=== PATIENT | female | born 1970 | race Caucasian/White ===

== ENCOUNTER 2024-10-15 18:23 | Observation (INO) | payer BC, SELFPAY ==
[2024-10-15 12:25] VITALS: BP 101/68
[2024-10-15 12:49] LABS: Hematocrit 37.1 % (37.0-47.0); Hemoglobin 12.5 g/dL (12.0-16.0); Mean Corp Hgb Conc. 33.7 g/dL (33.0-37.0); Mean Corpuscular Volume 94.6 fL (81.0-99.0); Nucleated Red Blood Cells % 0 %; Platelet Count 334 10^3/uL (130-400); Red Cell Dist. Width 13.8 % (11.5-14.5)
[2024-10-15 13:07] LABS: ALT (SGPT) 14 U/L (0-35); AST (SGOT) 24 U/L (14-36); Albumin 4.3 g/dl (3.5-5.0); Alkaline Phosphatase 54 U/L (38-126); Blood Urea Nitrogen 19 mg/dl (7-17); Calcium 9.7 mg/dl (8.4-10.2); Carbon Dioxide 30 mmol/L (22-30); Chloride 103 mmol/L (98-107); Glucose 85 mg/dl (70-99); Potassium 4.1 mmol/L (3.5-5.1); Sodium 138 mmol/L (135-145); Total Protein 6.7 g/dl (6.3-8.2); eGFR 58.97
[2024-10-15 13:45] VITALS: BP 98/61
--- NOTE | 2024-10-15 15:08 | ED.GENMED ---
History of Present Illness
General
Chief Complaint: Change in Mental Status
Source: patient and family
Time Seen by Provider: 10/15/24 13:30
History of Present Illness
History of Present Illness:
54-year-old female presents for evaluation of confusion, word finding abnormalities. Patient has been experiencing the symptoms for the past few days. Symptoms seem to correlate with the onset of fentanyl patch though dose was reduced from 25-12.5
and remains the same. She does take gabapentin for at night as well. She takes Dilaudid orally for breakthrough pain. Fentanyl patch was started to help control the patient's pain on her more constant basis that she was using oral Dilaudid
frequently. Pain is related to bony mets. Patient is not receiving any IV chemotherapy but is taking hormonal blockers
Phy Exam
Physical Exam
Physical Exam:
General: Awake, Alert, Oriented X3. No acute distress. Appears mildly confused and has some difficulty with word finding during the conversation
Vitals: unremarkable
Head: Atraumatic
Eyes: Pupils equal, EOMI
Throat: Airway intact, no exudates
Neck: Trachea midline
Lungs: Clear and equal b/l
Heart: Regular rate, no murmurs
Abd: Soft, Nontender, No pulsatile mass
Neuro: Cranial nerves intact, muscle strength equal bilaterally, cerebellar exam normal
Skin: Warm, dry, no rash
Extremities: pulses equal b/l, no edema
Course
Orders/Labs/Results
Orders:
Orders
10/15/24 12:42
Complete Blood Count/With Diff Urgent
Comprehensive Metabolic Panel Urgent
10/15/24 12:44
CT Cervical Spine W/o Iv Contr Urgent
Comment: increase confusion and balance issues x 2 week
Reason For Exam: fall, + head strike
CT Head W/o Iv Contrast Urgent
Comment: increase confusion and balance issues x 2 week
Reason For Exam: fall x 1 week ago + head strike
10/15/24 15:07
HYDROmorphone [Dilaudid] 2 mg PO NOW STA
Ketorolac [Toradol] 15 mg IV NOW STA
10/15/24 15:27
Ondansetron Injectable [Zofran] 4 mg .ROUTE .STK-MED ONE
10/15/24 15:40
Ondansetron Injectable [Zofran] 4 mg IV NOW STA
Abnormal Lab Results
10/15/24
12:42
WBC 3.7 L 10^3/uL
(4.8-10.8)
RBC 3.92 L 10^6/uL
(4.20-5.40)
MCH 31.9 H pg
(27.0-31.0)
Absolute Lymphs (auto) 0.5 L 10^3/uL
(1.2-3.4)
Lymphocytes % 12.5 L %
(20.5-51.1)
Eosinophils % 8.1 H %
(0-6)
Basophils % 2.2 H %
(0-2)
BUN 19 H mg/dl
(7-17)
Creatinine 1.1 H mg/dL
(0.6-1.0)
10/15/24 12:42
10/15/24 12:42
Vital Signs
Initial and Last Documented VS:
Initial Vital Signs
Temp Pulse Resp BP Pulse Ox
97.6 F 72 18 101/68 97
10/15/24 12:25 10/15/24 12:25 10/15/24 12:25 10/15/24 12:25 10/15/24 12:25
Last Documented Vital Signs
Temp Pulse Resp BP Pulse Ox
97.6 F 68 8 98/61 97
10/15/24 12:25 10/15/24 13:46 10/15/24 13:46 10/15/24 13:45 10/15/24 15:08
MDM/Problems Addressed
Differential Diagnosis Includes:
Electrolyte abnormality, medication adverse effect, subdural, intracranial mets
MDM/Problems Addressed:
Patient presents with some confusion word finding problems. Symptoms seem to coincide with the initiation of the fentanyl patch. Patient also takes Dilaudid orally as needed as well as gabapentin for hot flashes that have occurred due to her
hormonal treatment. I was able to access documents in [employer] and see that the patient was referred to the emergency room by her oncologist for hospitalization at adjustment of her medication to for her mental status changes or medication related and
also evaluate any other potential causes. CT here shows no acute abnormality.
Acute Exacerbation and/or Progression of Chronic Illness: Cancer (Breast cancer with bony metastases)
*Radiology
Radiology exam reviewed: radiology read reviewed
*Pulse Oximetry
SaO2: 97
Oxygen Mode of Delivery: Room air
Patient hypoxic: no
*Critical Care Note
Total Time (30-74mins, 75-104mins- exclusive of procedures): Not Applicable
ED Attending Note
-
Portions of this chart may have been created with voice recognition software.� Occasional wrong word or��sound alike� substitutions may have occurred due to the inherent limitations of voice recognition software.
Discharge Plan
Departure
Patient Disposition: Admit
Date of Disposition: 10/15/24
Time of Disposition: 15:08
Admit to: Med/Surg
Presentation/result/management discussed w/ accepting MD/DO: Hospitalist
Condition: Fair
Discharge Problem:
Altered mental status
Prescriptions:
No Action
ondansetron HCl [Zofran] 8 mg Tablet
8 mg PO Q8H PRN (Reason: nausea)
prochlorperazine maleate [Compazine] 10 mg Tablet
10 mg PO Q8H PRN (Reason: nausea)
diazepam 2 mg Tablet
2 mg PO HS
gabapentin 300 mg Capsule
300 mg PO HS
hydromorphone 4 mg Tablet
4 mg PO Q3H
fentanyl 12 mcg/hr Patch 72 Hour
1 patch TRANSDERMAL Q72H
ribociclib 400 mg/day (200 mg x 2) Tablet
400 mg PO DAILY
Rx Instructions:
on three weeks off one week.
Referrals:
George Wills MD [Family Provider, Family Practice]
Interventions
Interventions:
*Risk Screen - Suicide Last Done: 10/15/24 12:25
*General Assessment Last Done: 10/15/24 12:25
*Neglect/Abuse Screening Last Done: 10/15/24 12:25
*ED- Fall Risk Assessment Last Done: 10/15/24 13:57
*ED COVID-19 Vaccine History Last Done: 10/15/24 13:57
ED- Pulmonary Assessment Last Done: 10/15/24 13:52
ED- Neurological Assessment Last Done: 10/15/24 13:47
ED- Cardiac Assessment Last Done: 10/15/24 13:52
Discharge Date and Time
Print Language: ESTONIAN
[2024-10-15] MEDS: DILAUDID 2 MG PO (15:36)
[2024-10-15] MEDS: TORADOL 15 MG IV (15:37)
[2024-10-15 15:41] VITALS: BP 115/76
[2024-10-15 16:00] VITALS: BP 91/62
--- NOTE | 2024-10-15 16:14 | HPS.HSE ---
Addendum entered and electronically signed by Devan Spence MD 10/15/24 19:47:
This is an addendum to H&P written by Viviane Gill on 10/15/2024. �Patient seen and examined independently with [employer].
54-year-old female past medical history of metastatic breast cancer with mets to bone status post palliative radiation, skull seizures, presenting with word finding difficulty, dizziness with ambulation.
She was recently started on fentanyl patch and gabapentin on 10/04 by palliative care at [place] with symptoms starting after addition of medications. �She recently had MRI in 10/07 which showed no intracranial involvement and only skull metastases.
Vital signs show blood pressure of 90s to 100.
Labs show creatinine of 1.1.
Patient with word finding difficulty and more fatigue/somnolence after starting fentanyl patch and gabapentin by palliative care. �Will stop no patch and gabapentin. �Family would like to discuss with palliative care at [facility]. �Does not require
repeat brain imaging since she recently had MRI brain on 10/07.
IV fluids to be given. �Check orthostatic vital signs.
Original Note:
Family Physician
-
Family Physician: George Wills
Chief Complaint
-
change in mental status
History of Present Illness
Patient is a 54-year-old female with past medical history significant for metastatic breast cancer who presented to [facility] ED for evaluation of acute change in mental status. Patient, spouse and daughter all assisted with HPI. Patient was started on
Fentanyl patch and Gabapentin around the 10th of the month. Spouse reports that almost instantly she began with increased fatigue with increased sleeping, feeling of being off balance with ambulation, falls, and difficulty articulating words at
times. The new medications were started downtown with [facility] program for pain management. Patient has had radiation treatments for bone mets and new consult yesterday for more palliative radiation treatments potentially. Denies any
infectious symptoms.
Medical History
Past Medical History
Past Medical History: Reports Other
Additional Past Medical History:
metastatic breast cancer
Hx seizures
Past Surgical History: Reports Other
Additional Past Surgical History:
bilateral lumpectomy
right total knee replacement
Social History
Tobacco: Non-smoker
Alcohol: None
Drug: Marijuana (THC cream for pain )
Personal:
Living: With Family
Family History
Family History: Not pertinent
Allergies / Home Medications
Allergies reflects when Allergies were last updated in [employer].
Home Medications with original date entered in [employer]
Allergy/Medication List:
Allergies
Allergy/AdvReac Type Severity Reaction Status Date / Time
oxycodone (From OxyContin) AdvReac Unknown Nausea / Verified 10/15/24 12:25
Vomiting
Home Medications
diazepam 2 mg tablet 2 mg PO HS 10/15/24
fentanyl 12 mcg/hr transdermal patch 1 patch transdermal Q72H 10/15/24
gabapentin 300 mg capsule 300 mg PO HS 10/15/24
hydromorphone 4 mg tablet 4 mg PO Q3H 10/15/24
ondansetron HCl 8 mg tablet 8 mg PO Q8H PRN nausea 10/15/24
prochlorperazine maleate 10 mg tablet (Compazine) 10 mg PO Q8H PRN nausea 10/15/24
ribociclib 400 mg/day (200 mg x 2) tablets 400 mg PO DAILY 10/15/24
Review of Systems
-
History Source: Patient
Constitutional: Reports Fatigue
EENT: Reports No Symptoms
Respiratory: Reports No Symptoms
Cardiac: Reports No Symptoms
Abdomen/GI: Reports No Symptoms
: Reports No Symptoms
Musculoskeletal: Reports Other (pain with bone mets )
Skin: Reports No Symptoms
Neurological: Reports Dizzy (feels off balance when walking, no room spinning ) and Other (difficulty word finding at times, articulation can be skewed at times)
Endocrine: Reports No Symptoms
Hematologic/Lymphatic: Reports No Symptoms
Psych: Reports No Symptoms
Physical Exam
Vital Signs
Vital Signs
Temp Pulse Resp BP Pulse Ox
97.6 F 63 15 91/62 99
10/15/24 12:25 10/15/24 16:00 10/15/24 16:00 10/15/24 16:00 10/15/24 16:00
Physical Exam
General: Well Developed, Well Nourished, No Apparent Distress, Comfortable and Conversant
HEENT: NormoCephalic, Moist mucous membranes and Atraumatic
Respiratory: Clear and Non Labored Respirations
Cardiac: S1/S2 and Regular Rhythm; No Murmur, Rub or Gallop
Breast: Deferred by me
GI: Soft, Non Tender, Non Distended and Normal Bowel Sounds; No Organomegaly
Rectal: Deferred by Provider
Genito-urinary: Deferred by me
Musculoskeletal: No Clubbing, No Cyanosis and No Edema
Skin: Warm and IV/Catheter Site; No Rash
Neuro: Awake, AO x 3, Nonfocal/grossly intact, No Sensory Deficits and Other (no difficulties observed during assessment, patient does look to spouse and daughter to be sure she is answering appropriate and accurately )
Psych: Calm
Laboratory Results
-
10/15/24 12:42
10/15/24 12:42
Laboratory Results
Total Bilirubin 0.4 mg/dl (0.2-1.3) 10/15/24 12:42
AST 24 U/L (14-36) 10/15/24 12:42
ALT 14 U/L (0-35) 10/15/24 12:42
Alkaline Phosphatase 54 U/L (38-126) 10/15/24 12:42
Data Reviewed
-
CT Scan: Report Reviewed by me (Head: Lytic lesions within the calvarium, the largest in the midline anterior frontal region. These are compatible with bony metastatic lesions, given the patient's clinical history. No evidence for acute
intracranial abnormality. No evidence for acute intracranial hemorrhage. No gross evidence for)
Lab Data: Labs Reviewed by me (BUN 19, creat 1.1, eGFR 58.97)
Impression/Plan
-
IMPRESSION/PLAN:
#acute mental status change like 2/2 medication adjustments
BUN 19, creat 1.1, eGFR 58.97
Patient with added Fentanyl patch and Gabapentin around 10th by [facility] team
Head CT: Lytic lesions within the calvarium, the largest in the midline anterior frontal region. These are compatible with bony metastatic lesions, given the patient's clinical history.
No evidence for acute intracranial abnormality. No evidence for acute intracranial hemorrhage. No gross evidence for intracranial metastatic disease on this unenhanced CT.
C-Spine CT: No evidence of acute fracture or dislocation.
Bony metastatic disease as described.
Recent MRI at [place] 10/07/2024 where skull lesions noted to have decreased in size per
- Admit to telemetry
- Consult Palliative care for pain management
- check orthostatic VS
- IVF NSS 100cc/hr
- stop Fentanyl patch and gabapentin
- PRN Dilaudid
#metastatic breast cancer
follows at [facility]
- continue to follow up with Oncology out patient
- to confirm if patient currently taking ribociclib and let care team know
Code status: Full Code
DVT prophylaxis: Lovenox sq
[2024-10-15] MEDS: ZOFRAN 4 MG IV (16:15)
[2024-10-15 19:12] VITALS: BMI 25.0
[2024-10-15 19:14] VITALS: BP 97/65
--- NOTE | 2024-10-15 19:45 | PTCARENOTE ---
Patient admitted to from ED. Vitals on admission BP 97/65 HR 60 NSR/gareth on monitor, 97.9F oral temp, 98% RA. Patient AAOx3, standby assist in room. Admission questions completed by this RN, patient oriented to room and call freeman, states no
concerns at this time. All Fentanyl patches from home off of patient at this time, skin intact. Report given to oncoming night KIKE Escobedo.
[2024-10-15] MEDS: LOVENOX 40 MG SC (20:22)
[2024-10-15] MEDS: DILAUDID 4 MG PO (20:23)
[2024-10-15] MEDS: NSS 1000 IV (20:23)
[2024-10-15] MEDS: SENOKOT 17.2 MG PO (21:55)
[2024-10-15 23:36] VITALS: BP 77/53
[2024-10-16] MEDS: DILAUDID 4 MG PO ×6 (00:08→14:03)
[2024-10-16 03:19] VITALS: BP 85/55
[2024-10-16] MEDS: NSS 1000 IV (05:54)
[2024-10-16 06:00] VITALS: BMI 25.0
[2024-10-16 06:58] LABS: Hematocrit 30.2 % (37.0-47.0); Hemoglobin 10.4 g/dL (12.0-16.0); Mean Corp Hgb Conc. 34.4 g/dL (33.0-37.0); Mean Corpuscular Volume 92.9 fL (81.0-99.0); Platelet Count 263 10^3/uL (130-400); Red Cell Dist. Width 13.3 % (11.5-14.5)
[2024-10-16 07:00] LABS: Blood Urea Nitrogen 15 mg/dl (7-17); Calcium 8.2 mg/dl (8.4-10.2); Carbon Dioxide 23 mmol/L (22-30); Chloride 110 mmol/L (98-107); Estimated Creatinine Clearance 65 ml/min; Glucose 80 mg/dl (70-99); Potassium 4.3 mmol/L (3.5-5.1); Sodium 136 mmol/L (135-145); eGFR > 60.00
--- NOTE | 2024-10-16 07:29 | W.PN.HOSP.TC ---
Today's Communication/Plan
-
d/c home after pain meds optimization and palliatiove consult
Assessment / Plan
Assessment / Plan
54-year-old female with known past medical history of metastatic breast cancer with mets to the bone s/p palliative radiation, seizures, presenting with word finding difficulty for a week, and dizziness with ambulation.
#Acute mental status change like 2/2 medication adjustments
-Patient with added Fentanyl patch on 10/04 and Gabapentin by [place] [facility] team
10/16/[address]: Lytic lesions within the calvarium, the largest in the midline anterior frontal region. These are compatible with bony metastatic lesions, given the patient's clinical history.
No evidence for acute intracranial abnormality. No evidence for acute intracranial hemorrhage. No gross evidence for intracranial metastatic disease on this unenhanced CT.
C-Spine CT: No evidence of acute fracture or dislocation.
Bony metastatic disease as described.
Recent MRI at [place] 10/07/2024 where skull lesions noted to have decreased in size per
- Palliative care consult pending
- IVF NSS 100cc/hr; however IV team unable to get iv line and she refused midline and states her bp is always in 90s.
- stop Fentanyl patch and gabapentin
- continue Dilaudid
- curbsided heme; no role at this time if she is on palliative care
#metastatic breast cancer
follows at [facility]
- continue to follow up with Oncology out patient
- to confirm if patient currently taking ribociclib and let care team know
# Chronic opioids
- Continue Dilaudid 4 mg p.o. every 3H; stop fentanyl
- Tylenol as needed
- Senokot p.o. twice daily for constipation
Code status: Full Code
DVT prophylaxis: Lovenox sq
Anticipated Discharge: Today
Subjective/Interval History
-
Date of Service: October 16, 2024
Seen and examined at bedside. Patient offers no new complaints. States that she continues to have intermittent pain in multiple areas of her body. She does get benefit from the current Dilaudid.afebrile with soft blood pressure readings.
Objective Data
-
Labs:
Laboratory Results
10/16/24
06:26
WBC 1.8 L*
Hgb 10.4 L
Hct 30.2 L
Plt Count 263 D
Sodium 136
Potassium 4.3
Chloride 110 H
Carbon Dioxide 23
BUN 15
Creatinine 0.9
Glucose 80
Calcium 8.2 L D
Vital Signs:
Vital Signs
Temp Pulse Resp BP Pulse Ox
97.6 F 71 18 85/55 96
10/16/24 03:19 10/16/24 03:19 10/16/24 03:19 10/16/24 03:19 10/16/24 03:19
I&O
10/15/24 10/16/24 10/17/24
06:59 06:59 06:59
Intake Total 480 / 480
Balance 480 / 480
Review of Systems
-
History Source: Patient
All other systems: Reviewed and negative (Except as documented)
Musculoskeletal: Reports Arthralgias and Myalgias
Physical Exam
-
General: Well Nourished and No Apparent Distress
HEENT: Normocephalic
Respiratory: Clear to Auscultation and Non Labored Respirations
Cardiac: Regular Rhythm and S1/S2
GI: Soft and Nontender
Neuro: Awake, Alert, Oriented, No Motor Deficits and No Sensory Deficits
Psych: Calm
Data Reviewed
-
CT Scan: Report Reviewed by me, Discussed with Physician and Discussed with Patient
Labs: Labs Reviewed by me, Discussed with Physician and Discussed with Patient
[2024-10-16 08:08] VITALS: BP 84/56
[2024-10-16 08:49] LABS: Albumin 3.3 g/dl (3.5-5.0)
[2024-10-16] MEDS: SENOKOT 17.2 MG PO (09:00)
--- NOTE | 2024-10-16 11:08 | CM ---
Reviewed the chart notes and spoke with the patient at the bedside. The patient is admitted under observational status. The observation letter was provided and explained. The patient had no questions with regards to the letter.
The patient resides with her spouse in a one story home with one step to enter. The patient reports no DME/VN/SNF in the past. Patient confirmed pharmacy of choice is [facility]. CM continues to be available to patient/family and is
monitoring medical plan for needs at discharge.
Plan: Discharge to home when medically stable. No needs anticipated at this time.
[2024-10-16 11:35] VITALS: BP 95/60
[2024-10-16] MEDS: NSS IV (12:44)
--- NOTE | 2024-10-16 12:56 | W.DCSUMMARY ---
Documented by User: Bjorn Pastor MD, Resident 10/16/24 13:43
Discharge Summary
Discharge Data
Date of Admission: 10/15/24
Date of Discharge: 10/16/24
-
Pending Results: No
Hospital Course
Discharging Physician : Bjorn Pastor MD ; Marcos Dixon DO
Disposition : Home
Primary care physician : Vilma Wills
Principal Discharge diagnosis : Acute metabolic encephalopathy secondary to sedation from medications
Chronic Discharge diagnosis : metastatic breast cancer,
Hospital Course : 54-year-old female with past medical history significant for metastatic breast cancer who presented to [facility] ED for evaluation of acute change in mental status. Patient was started on Fentanyl patch and Gabapentin around the 10th
of the month. Spouse reportsedthat almost instantly she began with increased fatigue with increased sleeping, feeling of being off balance with ambulation, falls, and difficulty articulating words at times. The new medications were started downtown
with [facility] program for pain management. Patient has had radiation treatments for bone mets. Per family's request consult was placed for palliative care at [facility]. Given that her blood pressure was on the lower side IV fluids
were ordered however the IV team could not get a peripheral IV line and recommended midline however the patient refused and stated that her blood pressure is always in the 90s that this is normal for her.
Recommended a long-acting opioid. She declines methadone in the past and would like to try it again. Will send a short prescription of methadone to the pharmacy. Advise and she is aware that she will reach out to [facility] for additional
prescription. She is also aware that she can switch her care to the [facility] palliative care team.
She remains stable and wanted to go home. Medically stable for discharge. Return precautions were reviewed with the patient
Important imaging findings : CT Head W/o Iv Contrast:
FINDINGS: In the midline anterior frontal calvarium, there is a lytic lesion which measures approximately 2.7 cm transverse by 1.2 cm AP by 1.8 cm craniocaudal, and this likely represents a bony metastatic lesion. This appears to extend adjacent to
the superior sagittal sinus without significant associated mass effect.
There are scattered smaller lytic lesions seen within the calvarium, and these likely also represent bony metastatic lesions.
There is no evidence for acute intracranial hemorrhage.
There is no mass effect with no midline shift.
The ventricles and subarachnoid cisterns appear within normal limits. No abnormal extra-axial collection is identified.
Pickard and white matter differentiation appears normal.
The visualized paranasal sinuses appear clear. The mastoid air cells appear clear.
IMPRESSION:
Lytic lesions within the calvarium, the largest in the midline anterior frontal region. These are compatible with bony metastatic lesions, given the patient's clinical history.
No evidence for acute intracranial abnormality. No evidence for acute intracranial hemorrhage. No gross evidence for intracranial metastatic disease on this unenhanced CT.
CT Cervical Spine W/o Iv Contr:
There is no evidence of acute fracture or dislocation. The odontoid appears intact. The predental space is not widened. The prevertebral soft tissues do not appear abnormally widened.
Moderate degenerative disc disease at C5-6 and C6-7 with posterior spurring extending into the anterior aspect of the spinal canal.
In the right paramedian aspect of the C5 vertebral body, there is a 5 mm lytic focus which is suspicious for a metastatic lesion given the clinical history. In the left side of the C5 vertebral body, there is a 12 mm mixed lytic and sclerotic focus,
which likely represents a metastatic lesion. No gross evidence for significant epidural extension of these lesions.
In the posterior midline posterior elements of C2, there is a small lytic lesion with diameter of approximately 10 mm, which is likely a metastatic lesion. No significant epidural extension is evident on this unenhanced CT.
On sagittal images, in the left pedicle and lamina of T4, there is a mixed lytic and sclerotic lesion, which likely represents a bony metastatic lesion.
There is left apical pleural parenchymal density, suggesting scarring and possibly from previous radiation therapy.
IMPRESSION: No evidence of acute fracture or dislocation.
Bony metastatic disease as described.
Discharge Plan
-
Patient Disposition: Home (Routine Discharge)
Discharge Diagnosis/Procedures: Acute metabolic encephalopathy secondary to sedation from medications
Condition: Fair
Diet: No restrictions
Activity: No restrictions
Driving Restrictions: As prior to admission
Bathing Restrictions: None
Referrals:
George Wills MD [Family Provider, [facility]] - in less than 1 week
Additional Discharge Medication Instructions: Prescription of methadone 5 mg was sent to your pharmacy.
Please follow-up with your pain palliative team for additional scripts of that methadone.
Discontinue fentanyl patch as well as gabapentin. Please discuss with the palliative team before considering resuming gabapentin.
You can continue other home medications
You should follow-up with the family doctor within 1 week
If you develop any new symptoms or worrisome concerns you should return to the hospital.
Prescriptions:
New
methadone 5 mg tablet
5 mg PO BID 5 Days Qty: 10 0RF
Continued
ondansetron HCl 8 mg Tablet
8 mg PO Q8H PRN (Reason: nausea)
prochlorperazine maleate [Compazine] 10 mg Tablet
10 mg PO Q8H PRN (Reason: nausea)
diazepam 2 mg Tablet
2 mg PO HS
hydromorphone 4 mg Tablet
4 mg PO Q3H
ribociclib 400 mg/day (200 mg x 2) Tablet
400 mg PO DAILY
Rx Instructions:
on three weeks off one week.
Discontinued
gabapentin 300 mg Capsule
300 mg PO HS
fentanyl 12 mcg/hr Patch 72 Hour
1 patch TRANSDERMAL Q72H
Discharge Orders:
Discharge Patient (As Directed); Ordered 10/16/24
Ordered By: Marcos Dixon
Discharge Date and Time
Discharge Date/Time: 10/16/24 14:27
Print Language: AUSTRIAN

Documented by User: Marcos Dixon DO 10/16/24 15:00
Discharge Summary
Discharge Data
Date of Admission: 10/15/24
Date of Discharge: 10/16/24
Total time spent discharging patient (in min): 32
Discharge Plan
-
Patient Disposition: Home (Routine Discharge)
Discharge Diagnosis/Procedures: Acute metabolic encephalopathy secondary to sedation from medications
Condition: Fair
Diet: No restrictions
Activity: No restrictions
Driving Restrictions: As prior to admission
Bathing Restrictions: None
Referrals:
George Wills MD [Family Provider, [facility]] - in less than 1 week
Additional Discharge Medication Instructions: Prescription of methadone 5 mg was sent to your pharmacy.
Please follow-up with your pain palliative team for additional scripts of that methadone.
Discontinue fentanyl patch as well as gabapentin. Please discuss with the palliative team before considering resuming gabapentin.
You can continue other home medications
You should follow-up with the family doctor within 1 week
If you develop any new symptoms or worrisome concerns you should return to the hospital.
Prescriptions:
New
methadone 5 mg tablet
5 mg PO BID 5 Days Qty: 10 0RF
Continued
ondansetron HCl 8 mg Tablet
8 mg PO Q8H PRN (Reason: nausea)
prochlorperazine maleate [Compazine] 10 mg Tablet
10 mg PO Q8H PRN (Reason: nausea)
diazepam 2 mg Tablet
2 mg PO HS
hydromorphone 4 mg Tablet
4 mg PO Q3H
ribociclib 400 mg/day (200 mg x 2) Tablet
400 mg PO DAILY
Rx Instructions:
on three weeks off one week.
Discontinued
gabapentin 300 mg Capsule
300 mg PO HS
fentanyl 12 mcg/hr Patch 72 Hour
1 patch TRANSDERMAL Q72H
Discharge Orders:
Discharge Patient (As Directed); Ordered 10/16/24
Ordered By: Marcos Dixon
Discharge Date and Time
Discharge Date/Time: 10/16/24 14:27
Print Language: AUSTRIAN
--- NOTE | 2024-10-16 13:09 | W.CON.PAL ---
Consultation
-
Date/Time Consultation Requested: 10/15
Date/Time Consultation Performed: 10/16
Performing Provider: Beena Akbar
Reason for Consult: Symptom & Pain Management
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
Consult Requested By: Patient, Patient's Family and Patient's Physician
Reason for Admission
Illness Course/HPI
54 year F with metastatic breast cancer on treatment admitted with AMS related to new medications - fentanyl and gabapentin.
Seen at bedside with daughter. Has been on and off multiple opioids over the last few months. Bad reactions to some, others she did well on then wanted to wean because she felt better. Admitted with AMS, increased pain and awaiting further pelvic
radiation.
Discussed need for long acting opioid - did well with methadone in the past. Discussed getting on good regimen and staying on this as comingon and off will cause a lot of ups and downs. She is hoping her outpatient team will order methadone again.
We discussed can transition to our clinic if she desires, will let us know.
Recs given to primary team who will send her home with small amount of methadone until she can see palliative provider.
Functional Status
independent with care
Pain & Symptom Assessment
Patient Symptoms
Patient Symptoms: Pain and Insomnia
Objective Data
-
Objective Data:
Vital Signs
Temp Pulse Resp BP Pulse Ox
97.8 F 68 18 95/60 97
10/16/24 11:35 10/16/24 11:35 10/16/24 11:35 10/16/24 11:35 10/16/24 11:35
Laboratory Results
10/16/24 06:26
10/16/24 06:26
Total Protein 6.7 g/dl (6.3-8.2) 10/15/24 12:42
Albumin 3.3 g/dl (3.5-5.0) L 10/16/24 06:26
Palliative Performance Scale
Palliative Performance Scale:
PPS Level Ambulation Activity & Evidence of Disease Self Care Intake Conscious Level
100% Full Normal Activity & Work; Full Intake Full
No Evidence of Disease
90% Full Normal Activity & Work; Full Normal Full
Some Evidence of Disease
80% Full Normal Activity with Effort Full Normal or Full
Some Evidence of Disease Reduced
70% Reduced Unable Normal Job/Work Full Normal or Full
Significant Disease Reduced
60% Reduced Unable Hobby/Housework Occasional Normal or Full or Confusion
Significant Disease Assistance Reduced
50% Mainly Sit/Lie Unable to do Any Work Considerable Normal or Full or Confusion
Extensive Disease Assistance Req'd Reduced
40% Mainly in Bed Unable to do Most Activity Mainly Assistance Normal or Full or Drowsy;
Extensive Disease Reduced +/- Confusion
30% Totally Bed Unable to do Any Activity Total Care Normal or Full or Drowsy;
Bound Extensive Disease Reduced +/- Confusion
20% Totally Bed Bound Unable to do Any Activity Total Care Minimal to Full or Drowsy;
Extensive Disease Sips +/- Confusion
10% Totally Bed Bound Unable to do Any Activity Total Care Mouth Care Drowsy or Coma;
Extensive Disease Only +/- Confusion
0%
PPS Score Level:
Palliative Performance Score Response
Palliative Performance Score Response: 70%
Physical Exam
-
General: Well Developed and No Apparent Distress
HEENT: Normocephalic
Respiratory: Clear to Auscultation
Peripheral Vascular: No Edema
Neuro: AO x 3
Psych: Calm
Assessment / Plan
-
Assessment/Plan:
54 year old F with metastatic breast cancer
- start methadone 5mg PO BID
- continue PRN dilaudid 4mg PO
- follow up with palliative provider - [facility] vs transition to - daughter has contact info
Care Reviewed
Data Reviewed
Radiology procedure: Report Reviewed
Medical Tests: I reviewed
Reviewed with: Patient, Family and Physician
[2024-10-16] MEDS: ZOFRAN 8 MG PO (14:03)
== END 2024-10-16 14:27 | disposition home or self-care (01) ==
LOC: 2 NORTH 18:23
PROVIDERS: Emergency Medicine; Nurse Practitioner Family; ADMITTING PHYSICIAN Hospitalist; ATTENDING PHYSICIAN Internal Medicine; CONSULT PHYSICIAN Nurse Practitioner Gerontology; EMERGENCY PHYSICIAN Emergency Medicine; FAMILY PHYSICIAN Family Medicine
DX: G93.41 Metabolic encephalopathy (principal); R41.82 Altered mental status, unspecified; C79.51 Secondary malignant neoplasm of bone; R91.8 Other nonspecific abnormal finding of lung field; G47.00 Insomnia, unspecified; D70.9 Neutropenia, unspecified; R10.2 Pelvic and perineal pain; T42.6X5A Adverse effect of other antiepileptic and sedative-hypnotic drugs, initial encounter; T40.415A Adverse effect of fentanyl or fentanyl analogs, initial encounter; Y92.9 Unspecified place or not applicable; G89.3 Neoplasm related pain (acute) (chronic); K59.00 Constipation, unspecified; C50.919 Malignant neoplasm of unspecified site of unspecified female breast; R53.83 Other fatigue; M50.322 Other cervical disc degeneration at C5-C6 level; M50.323 Other cervical disc degeneration at C6-C7 level; Z96.651 Presence of right artificial knee joint; Z88.5 Allergy status to narcotic agent; Z92.3 Personal history of irradiation
CPT/HCPCS: 70450; 72125; 80048; 80053; 82040; 85025; 85027; 96374; 96375; 99285; G0378

== ENCOUNTER 2024-12-07 07:46 | Inpatient (IN) | payer BC, SELFPAY ==
[2024-12-05] VITALS (8 sets, daily range): BP systolic 104–147; BP diastolic 75–93; BMI 24.2; BMI 24.9
[2024-12-05] MEDS: ZOFRAN 4 MG IV ×2 (18:25→20:54)
[2024-12-05] MEDS: DILAUDID 2 MG IV ×2 (18:25→20:54)
[2024-12-05] MEDS: NSS 1000 IV (18:25)
--- NOTE | 2024-12-05 18:57 | ED.GENMED ---
History of Present Illness
General
Chief Complaint: Failure to Thrive
Source: patient and spouse
Exam Limitations: none
Time Seen by Provider: 12/05/24 16:44
Nursing documentation reviewed up to this point in time: agreed with
History of Present Illness
History of Present Illness:
The patient is a 54-year-old female with a past medical history of metastatic breast cancer to the bones, including the lower extremities and skull, who comes in with complaints of 8 days of constant nausea, intermittent vomiting, decreased appetite
and extreme fatigue. Patient reports that she is followed by an oncologist at [facility] as well as a palliative care team. She reports she gets oral chemotherapy for 3 weeks straight, takes a week off, and then does another 3
weeks of oral chemotherapy. She reports this past week she has had her week off of chemotherapy. She denies diarrhea. She reports that despite taking Dilaudid 4 mg every 3 hours for breakthrough pain, the pain is still severe in her joints and
hips.
Past History
Past History
ED Past Medical History: Cancer (Metastatic breast cancer)
ED Past Surgical History: Other
Social History
Tobacco: Non-smoker
Alcohol: Other
Drug: None
Personal:
Living: with family
Employment: Other
Family History
Family History: Other
Review of Systems
Review of Systems
Allergies reviewed?: Yes
All Other Systems: ROS reviewed and negative except as documented in HPI and ROS
Constitutional: Reports fatigue
EENT: Reports no symptoms
Respiratory: Reports no symptoms
Cardiac: Reports no symptoms
ABD/GI: Reports nausea, vomiting and anorexia
: Reports no symptoms
Musculoskeletal: Reports joint pain and muscle stiffness
Skin: Reports no symptoms
Neurological: Reports no symptoms
Endocrine: Reports no symptoms
Hematologic/Lymphatic: Reports no symptoms
Psychiatric: Reports no symptoms
Phy Exam
Physical Exam
Physical Exam:
Physical Exam
General: no apparent distress, not acutely ill
Neck: supple. no meningeal signs. normal psoterior pharynx. Dry mucous membrane
Heart: Tachycardic
Lungs: no acute respiratory distress. clear bilaterally
Abdomen: normal bowel sounds. not tender. no CVAT
Neuro: alert and oriented. no focal neurological deficits
Skin: no rash
Psychiatric: well kept. interactive and cooperative
Extremities: no edema. no calf tenderness. negative homans. good distal pulses
Course
Orders/Labs/Results
Orders:
Orders
12/05/24 17:11
Ondansetron Injectable [Zofran] 4 mg IV NOW STA
12/05/24 17:12
0.9% Sodium Chloride 1000 ml [Nss] 1,000 ml IV BOLUS
HYDROmorphone [Dilaudid] 2 mg IV NOW STA
12/05/24 18:05
Complete Blood Count/With Diff Urgent
Comprehensive Metabolic Panel Urgent
Lipase Urgent
Manual Differential Urgent
TSH Urgent
12/05/24 18:35
Add On- LAB Urgent
Tests Added?: lipase
12/05/24 19:38
COVID-19 Antigen Urgent
Source: Nasal Swab
Influenza A+B Rapid Molecular Urgent
JOSÉ MANUEL Source: Nasal Swab
Specimen Description:
12/05/24 19:56
Urinalysis Reflex To Culture Urgent
Date Specimen was Collected: 12/05/24
Time Specimen was Collected: 19:43
Urine Microscopic Reflex Cult Urgent
12/05/24 20:34
HYDROmorphone [Dilaudid] 2 mg IV NOW STA
Ondansetron Injectable [Zofran] 4 mg IV NOW STA
Abnormal Lab Results
12/05/24 12/05/24
18:05 19:56
WBC 2.4 L* 10^3/uL
(4.8-10.8)
MCH 32.6 H pg
(27.0-31.0)
RDW 15.7 H %
(11.5-14.5)
Lymphocytes (Manual) 15 L %
(20-51)
Monocytes (Manual) 20 H %
(2-9)
Sodium 133 L mmol/L
(135-145)
Carbon Dioxide 21 L mmol/L
(22-30)
Urine Ketones 3+ A
(Negative)
Urine Bacteria (Reflex) Few A
(Negative)
Urine Albumin (Reflex) 1+ A
(Neg - Trace)
12/05/24 18:05
12/05/24 18:05
Vital Signs
Initial and Last Documented VS:
Initial Vital Signs
Temp Pulse Resp BP Pulse Ox
97.8 F 109 16 107/83 96
12/05/24 14:15 12/05/24 14:15 12/05/24 14:15 12/05/24 14:15 12/05/24 14:15
Last Documented Vital Signs
Temp Pulse Resp BP Pulse Ox
98.6 F 98 16 111/80 96
12/05/24 17:11 12/05/24 17:11 12/05/24 17:11 12/05/24 17:11 12/05/24 19:00
MDM/Problems Addressed
Differential Diagnosis Includes:
Acute dehydration, acute anemia, viral illness such as COVID
MDM/Problems Addressed:
Patient presents with acute nausea, vomiting and generalized weakness
Chronic conditions affecting care:
Cancer
Acute Exacerbation and/or Progression of Chronic Illness:
Patient may have acute infection due to being on chronic chemotherapy
*Pulse Oximetry
SaO2: 96
Oxygen Mode of Delivery: Room air
Patient hypoxic: no
*EKG
Interpreted by ED Provider?: NA
*Pediatric Neuropsychologist Interpretation
Rate: normal
Interpretation: normal
Rhythm: sinus
*Critical Care Note
Total Time (30-74mins, 75-104mins- exclusive of procedures): Not Applicable
Data Reviewed
Review of Other/Old Records Reveals: Discharge Summary (Discharge summary reviewed from 09/2024 when patient was admitted for encephalopathy due to pain medication)
Source: patient and spouse
Patient Management
Social determinants of health affecting care: Living situation and Strong social support
Discussion with other providers: Hospitalist
Escalation/DeEscalation of care consider admission/obs:
Patient reports she still feels extremely fatigued and is hesitant to go home. She reports her pain is severe and she is still nauseous. Patient requesting more Dilaudid and Zofran. There is no sign of fever or sepsis. Patient has had no cough
and lungs are clear on exam.
ED Attending Note
-
Portions of this chart may have been created with voice recognition software.� Occasional wrong word or��sound alike� substitutions may have occurred due to the inherent limitations of voice recognition software.
Discharge Plan
Departure
Patient Disposition: Admit
Date of Disposition: 12/05/24
Time of Disposition: 20:48
Admit to: Med/Surg
Presentation/result/management discussed w/ accepting MD/DO: Hospitalist
Patient with high blood pressure during this ER visit?: No
Condition: Good
Covid-19: Negative COVID-19
Discharge Problem:
Intractable pain, Acute dehydration, Intractable nausea
Prescriptions:
No Action
ondansetron HCl 8 mg Tablet
8 mg PO Q8H PRN (Reason: nausea)
prochlorperazine maleate [Compazine] 10 mg Tablet
10 mg PO Q8H PRN (Reason: nausea)
diazepam 2 mg Tablet
2 mg PO HS
hydromorphone 4 mg Tablet
4 mg PO Q3H
ribociclib 400 mg/day (200 mg x 2) Tablet
400 mg PO DAILY
Rx Instructions:
on three weeks off one week.
methadone 5 mg tablet
5 mg PO BID 5 Days Qty: 10 0RF
Referrals:
George Wills MD [Family Provider, Family Practice]
Interventions
Interventions:
*Risk Screen - Suicide Last Done: 12/05/24 14:17
*General Assessment Last Done: 12/05/24 17:11
*Neglect/Abuse Screening Last Done: 12/05/24 14:17
*ED- Fall Risk Assessment Last Done: 12/05/24 17:11
*ED COVID-19 Vaccine History Last Done: 12/05/24 17:11
*ED Influenza Vaccine History Last Done: 12/05/24 17:11
Discharge Date and Time
Print Language: SALVADOREAN
[2024-12-05 18:58] LABS: ALT (SGPT) 15 U/L (0-35); AST (SGOT) 29 U/L (14-36); Albumin 4.7 g/dl (3.5-5.0); Alkaline Phosphatase 63 U/L (38-126); Blood Urea Nitrogen 16 mg/dl (7-17); Calcium 9.4 mg/dl (8.4-10.2); Carbon Dioxide 21 mmol/L (22-30); Chloride 103 mmol/L (98-107); Estimated Creatinine Clearance 74 ml/min; Glucose 70 mg/dl (70-99); Lipase 71 U/L (23-300); Potassium 5.1 mmol/L (3.5-5.1); Sodium 133 mmol/L (135-145); Total Protein 7.8 g/dl (6.3-8.2); eGFR > 60.00
[2024-12-05 19:01] LABS: TSH 3.10 uIU/ml (0.47-4.68)
[2024-12-05 19:04] LABS: Hematocrit 42.2 % (37.0-47.0); Hemoglobin 14.4 g/dL (12.0-16.0); Mean Corp Hgb Conc. 34.1 g/dL (33.0-37.0); Mean Corpuscular Volume 95.5 fL (81.0-99.0); Platelet Count 328 10^3/uL (130-400); Red Cell Dist. Width 15.7 % (11.5-14.5)
[2024-12-05 19:18] LABS: Absolute Neutrophils -Man Diff 1.4 10^3/uL (1.4-6.5); Normal RBC Morphology Yes; Platelets Checked Yes; Total Cells Counted 100
[2024-12-05 20:05] LABS: COVID-19 Antigen Negative (Negative)
[2024-12-05 20:23] LABS: Urine Character Clear (Clear)
[2024-12-05 20:56] LABS: Urine Red Blood Cell None Seen /HPF (0-2)
--- NOTE | 2024-12-05 21:16 | W.PN.UPDATE ---
Addendum entered and electronically signed by Jose Smith MD 12/05/24 21:56:
Correction for level of care:
CORRECTION for Level of care:
OBS MS in place of IP MS
Original Note:
Update Note
Progress Note Update
This note serves as an addendum to the H&P by staff antisubmarine officer Deshaun GRANT�
HPI�
54F HX metastatic bone dz ( skull and [place]eno) from [place] Breast seen at ER:
- 8 days of constant nausea, intermittent vomiting, decreased appetite and extreme fatigue.
- P oncologist at [facility] palliative care team
- s/p oral chemotherapy for 3 weeks straight, takes a week off, and then does another 3 weeks of oral chemotherapy.
- last week was week off of chemotherapy.
- denies diarrhea.
- reports that despite taking Dilaudid 4 mg every 3 hours for breakthrough pain, the pain is still severe in her joints and hips.
Relevant VS
Temp Pulse Resp BP Pulse Ox
98.6 F 98 16 111/80 96
12/05/24 17:11 12/05/24 17:11 12/05/24 17:11 12/05/24 17:11 12/05/24 19:00
PE
Gen: Not toxic
HEENT: anicteric
Neck: supple
Grossly NFND
Pych; appropirate
Relevant Data�
10/16/24 12/05/24
06:26 18:05
WBC 1.8 L* 2.4 L*
Hgb 10.4 L 14.4
Sodium 133 L
Potassium 5.1
Creatinine 0.8
eGFR > 60.00
10/15/24 HCT :
- Lytic lesions within the calvarium, the largest in the midline anterior frontal region.
These are compatible with bony metastatic lesions, given the patient's clinical history.
- No evidence for acute intracranial abnormality. No evidence for acute intracranial hemorrhage. No gross evidence for intracranial metastatic disease on this unenhanced CT.
10/15/[address]:
- No evidence of acute fracture or dislocation.
- Bony metastatic disease as described.
Last hospitalist admission:10/15/24 - 10/16/24
- Toxic encephalopathy due to medications Fentanyl patch and Gabapenti
ASSESSMENT & PLAN
Intractable N/V and decreased appetite
- off week fxlodex/ Ribociclib
- Supportive care with IVF, anti emetics
- Consult Onco
Intractable metastatic bone pain
- IV in place of PO Dilaudid - IV 2mg q3 hr PRN due to vomiting
- cont. CHIEF STRATEGY OFFICER Methadone
- palliative care pain management consult
Metastatic breast cancer
- follows at [facility]
DVT Px:LMWH
Full code
IP MS
--- NOTE | 2024-12-05 21:27 | HPS.HSE ---
Family Physician
-
Family Physician: George Wills
Chief Complaint
-
n/v
joints pain
History of Present Illness
54-year-old female with a past medical history of metastatic breast cancer to the bones, including the lower extremities and skull, who comes in with complaints of 8 days of constant nausea, intermittent vomiting, decreased appetite and extreme
fatigue. she complained of worsening joint pain. Patient reports that she is followed by an oncologist at [facility] as well as a palliative care team. She reports she is oral targeted therapy for three weeks then one week off.she
is also on IV Faslodex iv every 3 weeks. She reports this past week she has had her week off of that pill. . She denies diarrhea. patient stated poor appetite and has not vomited since Saturday. last week, she was on cruise and she was given
steroids to keep herself up to enjoy the vacation. denied fever, chills, chest pain, sob. denied CALDERA, dizzy or syncope. denied abdominal pain, diarrhea. denied dysuria or hematuria.
Medical History
Past Medical History
Past Medical History: Reports Other
Additional Past Medical History:
metastatic breast cancer
Past Surgical History: Reports Other
Additional Past Surgical History:
lumpectomy
Social History
Tobacco: Non-smoker
Alcohol: None
Drug: None
Personal:
Living: With Family
Family History
Family History: Not pertinent
Allergies / Home Medications
Allergies reflects when Allergies were last updated in [employer].
Home Medications with original date entered in [employer]
Allergy/Medication List:
Allergies
Allergy/AdvReac Type Severity Reaction Status Date / Time
oxycodone (From OxyContin) Allergy Nausea / Verified 10/15/24 18:53
Vomiting
Home Medications
diazepam 2 mg tablet 2 mg PO HS 10/15/24
hydromorphone 4 mg tablet 4 mg PO Q3H 10/15/24
ondansetron HCl 8 mg tablet 8 mg PO Q8H PRN nausea 10/15/24
prochlorperazine maleate 10 mg tablet (Compazine) 10 mg PO Q8H PRN nausea 10/15/24
ribociclib 400 mg/day (200 mg x 2) tablets 400 mg PO DAILY 10/15/24
methadone 5 mg tablet 5 mg PO BID Pain 5 days #10 tabs 10/16/24
Review of Systems
-
Constitutional: Reports No Symptoms
EENT: Reports No Symptoms
Respiratory: Reports No Symptoms
Cardiac: Reports No Symptoms
Abdomen/GI: Reports No Symptoms
: Reports No Symptoms
Musculoskeletal: Reports No Symptoms
Skin: Reports No Symptoms
Neurological: Reports No Symptoms
Endocrine: Reports No Symptoms
Hematologic/Lymphatic: Reports No Symptoms
Psych: Reports No Symptoms
Physical Exam
Vital Signs
Vital Signs
Temp Pulse Resp BP Pulse Ox
98.6 F 98 16 111/80 96
12/05/24 17:11 12/05/24 17:11 12/05/24 17:11 12/05/24 17:11 12/05/24 19:00
Physical Exam
General: Well Developed, Well Nourished and No Apparent Distress
HEENT: NormoCephalic, Moist mucous membranes and Atraumatic
Respiratory: Clear
Cardiac: S1/S2 and Regular Rhythm; No Murmur or Rub
GI: Soft, Non Tender, Non Distended and Normal Bowel Sounds; No Organomegaly
Rectal: Deferred by Provider
Musculoskeletal: No Clubbing, No Cyanosis and No Edema
Skin: No Rash
Neuro: AO x 3 and Nonfocal/grossly intact
Psych: Calm
Laboratory Results
-
12/05/24 18:05
12/05/24 18:05
Laboratory Results
Total Bilirubin 0.8 mg/dl (0.2-1.3) 12/05/24 18:05
AST 29 U/L (14-36) 12/05/24 18:05
ALT 15 U/L (0-35) 12/05/24 18:05
Alkaline Phosphatase 63 U/L (38-126) 12/05/24 18:05
Lipase 71 U/L (23-300) 12/05/24 18:05
Data Reviewed
-
Lab Data: Labs Reviewed by me
Impression/Plan
-
# Acute on chronic intractable nausea/vomiting
-zofran prn
# Joint and bone pain secondary to metastatic cancer
# History of breast cancer mets to bone
-methadone and Dilaudid continued
-oncology consulted
# Leukopenia secondary to metastatic cancer/meds
- WBCs 2.4
-ctm
#DVT prophylaxis
-scd
#CODE status
-full code
[2024-12-05] MEDS: DOLOPHINE 5 MG PO (22:01)
[2024-12-06] MEDS: DILAUDID 2 MG IV ×6 (00:04→21:13)
[2024-12-06] MEDS: NSS 1000 IV ×2 (00:04→13:29)
[2024-12-06] MEDS: ZOFRAN 4 MG IV (00:04)
[2024-12-06] MEDS: VALIUM 2 MG PO ×2 (00:04→22:03)
--- NOTE | 2024-12-06 06:56 | W.PN.HOSP.TC ---
Today's Communication/Plan
-
See plan
Assessment / Plan
Assessment / Plan
Physical Exam
General: Well Developed, Well Nourished and No Apparent Distress
HEENT: Normocephalic, Moist mucous membranes and Atraumatic
Respiratory: Clear
Cardiac: S1/S2 and Regular Rhythm
GI: Soft, Non Tender, Non Distended and Normal Bowel Sounds
Musculoskeletal: No Cyanosis and No Edema
Skin: Warm. Dry.
Neuro: AAO x 3 and Nonfocal/grossly intact
Psych: Calm
Assessment/Plan
54-year-old female with a past medical history of metastatic breast cancer to the bones, including the lower extremities and skull, who presented with complaints of 8 days of constant nausea, intermittent vomiting, decreased appetite and extreme
fatigue. she complained of worsening joint pain. Patient reported that she is followed by an oncologist at [facility] as well as a palliative care team. She reports she is oral targeted therapy for three weeks then one week off.
she is also on IV Faslodex iv every 3-4 weeks. She reports this past week she has had her week off of that pill. She denied diarrhea but did have constipation. Last week, she was on cruise and she was given steroids to keep herself up to enjoy the
vacation. At the time of admission, she denied fever, chills, chest pain, sob. denied CALDERA, dizzy or syncope. denied abdominal pain, diarrhea. denied dysuria or hematuria.
#Acute on chronic intractable nausea/vomiting secondary to recent Kisqali/Ribociclib versus viral illness from [place] 1.5 weeks prior to presentation versus topical marijuana?
-Antiemetics as needed
-Discussed with oncology, consider Brain MRI (both with and without contrast -- confirmed with radiologist) to check for cancer metastases if her N/V continues
-Check abdominal obstruction x-ray series and it was negative for obstruction
-Discussed with clinical pharmacist and oncologist and okay for patient to use her topical marijuana in the hospital
# Joint and bone pain secondary to metastatic cancer
# History of breast cancer mets to bone
-methadone and Dilaudid continued
-oncology consulted
#Leukopenia secondary to metastatic cancer/meds
- WBCs 2.4
-ctm
DVT prophylaxis: SCDs. Lovenox
CODE status: full code
Anticipated Discharge: 24 - 48 hours
Subjective/Interval History
-
Date of Service: December 06, 2024
Patient was seen and examined. Earlier in the day she reported that her nausea and vomiting had resolved, but later in the day she started having nausea and vomiting again.
Objective Data
-
Labs:
Laboratory Results
12/05/24 12/06/24
18:05 06:00
WBC 2.4 L* Pending
Hgb 14.4 Pending
Hct 42.2 Pending
Plt Count 328 Pending
Sodium 133 L Pending
Potassium 5.1 Pending
Chloride 103 Pending
Carbon Dioxide 21 L Pending
BUN 16 Pending
Creatinine 0.8 Pending
Glucose 70 Pending
Calcium 9.4 Pending
Total Bilirubin 0.8
AST 29
ALT 15
Alkaline Phosphatase 63
Vital Signs:
Vital Signs
Temp Pulse Resp BP Pulse Ox
98 F 101 18 147/90 97
12/05/24 23:23 12/05/24 23:23 12/05/24 23:23 12/05/24 23:23 12/05/24 23:23
[2024-12-06 07:00] VITALS: BP 103/70
[2024-12-06 07:54] LABS: Hematocrit 32.6 % (37.0-47.0); Hemoglobin 11.3 g/dL (12.0-16.0); Mean Corp Hgb Conc. 34.7 g/dL (33.0-37.0); Mean Corpuscular Volume 95.6 fL (81.0-99.0); Platelet Count 266 10^3/uL (130-400); Red Cell Dist. Width 15.7 % (11.5-14.5)
[2024-12-06 08:05] LABS: Blood Urea Nitrogen 11 mg/dl (7-17); Calcium 8.2 mg/dl (8.4-10.2); Carbon Dioxide 21 mmol/L (22-30); Chloride 110 mmol/L (98-107); Estimated Creatinine Clearance 84 ml/min; Glucose 77 mg/dl (70-99); Potassium 4.3 mmol/L (3.5-5.1); Sodium 135 mmol/L (135-145); eGFR > 60.00
[2024-12-06] MEDS: DOLOPHINE 5 MG PO ×2 (08:29→20:14)
[2024-12-06] MEDS: FLUSH (NSS) 1 FLUSH IV ×3 (08:30→17:57)
--- NOTE | 2024-12-06 11:24 | CON.ONC ---
Consultation
-
Date Consultation Requested: 12/06/24
Date Consultation Performed: 12/06/24
Impression
Impression
Metastatic breast cancer to bone ER positive Faslodex/ribociclib
Transient nausea
Post steroid fatigue
Leukopenia secondary to ribociclib
Plan
Plan
Agreeable to discharge
Information provided describing availability as outpatient for therapies as needed
Reviewed the importance of having a local oncologist
Patient History
History of Present Illness
Lisa Madison is a pleasant 54-year-old female with metastatic ER positive breast carcinoma to the bones. She was diagnosed in 2010 and relapsed 1 year after discontinuing extended adjuvant therapy with tamoxifen/AI. She is currently receiving
Faslodex/ribociclib. She was given steroids to improve her sense of asthenia while on vacation but after discontinuing abruptly had a sensation of nausea and fatigue. She believes she was dehydrated. She has received IV fluids and has improved.
We are asked to see her in consultation to help support her with symptoms as needed. She has had continued response as documented by CA 27-[address] scan. She follows with Rosina Leonardo at [facility].
Past-Medical/Surgical History
Past Medical History
metastatic breast cancer
Past Surgical History
lumpectomy
Social History
Tobacco: Non-smoker
Alcohol: None
Drug: None
Personal:
Living: With Family
Family History
Family History: Not pertinent
Patient Medication
�Medication �Instructions �Recorded �Confirmed �Last Taken �Type
diazepam 2 mg tablet 2 mg PO HS 10/15/24 12/05/24 Unknown History
hydromorphone 4 mg tablet 4 mg PO Q3H 10/15/24 12/05/24 Unknown History
ondansetron HCl 8 mg tablet 8 mg PO Q8H PRN nausea 10/15/24 12/05/24 Unknown History
prochlorperazine maleate 10 mg 10 mg PO Q8H PRN nausea 10/15/24 12/05/24 Unknown History
tablet (Compazine)
ribociclib 400 mg/day (200 mg x 2) 400 mg PO DAILY 10/15/24 12/05/24 Unknown History
tablets
methadone 5 mg tablet 5 mg PO BID Pain 5 days #10 tabs 10/16/24 12/05/24 Unknown Rx
Active Medications
Generic Name Dose Route Start Last Admin
Trade Name Freq PRN Reason Stop Dose Admin
Acetaminophen 650 mg 12/05/24 23:18
Acetaminophen 325 Mg Tablet PO 01/02/25 23:17
Q4HPRN PRN
mild pain/CALDERA/temp> 100.4F
Bisacodyl 10 mg 12/05/24 23:18
Bisacodyl 10 Mg Rectal Suppository RECTAL 01/02/25 23:17
[id number] PRN
constipation
Diazepam 2 mg 12/05/24 23:18 12/06/24 00:04
Diazepam 2 Mg Tablet PO 01/02/25 23:17 2 mg
HS DEMETRI Administration
Enoxaparin Sodium 40 mg 12/06/24 18:00
Enoxaparin Sodium 40 Mg/0.4 Ml Syringe SC 01/03/25 17:59
QPM DEMETRI
Hydromorphone HCl 2 mg 12/05/24 23:18 12/06/24 08:29
Hydromorphone 1 Mg/Ml Carpuject IV 12/19/24 23:17 2 mg
Q4HPRN PRN Administration
severe pain
Sodium Chloride 1,000 mls @ 80 mls/hr 12/05/24 23:18 12/06/24 00:04
Nss IV 1,000 mls
.[id number] DEMETRI Administration
Methadone HCl 5 mg 12/06/24 08:00 12/06/24 08:29
Methadone 5 Mg Tablet PO 12/20/24 07:59 5 mg
BID DEMETRI Administration
Ondansetron HCl 4 mg 12/05/24 23:18 12/06/24 00:04
Ondansetron 4 Mg/2 Ml Vial IV 01/02/25 23:17 4 mg
Q8HPRN PRN Administration
nausea and vomiting
Patient Own Medication 0 unit 12/06/24 10:43
Patient's Own Medical Cannabis TOPICAL 01/03/25 10:42
PRN PRN
cancer-related pain
Protocol
Polyethylene Glycol 17 grams 12/05/24 23:18
Polyethylene Glycol Powder 17 Grams Packet PO 01/02/25 23:17
DAILYPRN PRN
constipation
Senna/Docusate Sodium 1 tablet 12/05/24 23:18
Docusate W/Senna (Anna-Colace) Tablet PO 01/02/25 23:17
BIDPRN PRN
constipation
Sodium Chloride 0 flush 12/05/24 23:00 12/06/24 08:30
Sodium Chloride 0.9% (Flush) Syringe IV 01/02/25 22:59 1 flush
PER PROTOCOL DEMETRI Administration
Review of Systems
-
Feels like she is returning to baseline. She does have occasional hot flashes. She denies increasing pain.
Physical Exam
-
Physical Exam
General: Well Developed, Well Nourished and No Apparent Distress
HEENT: NormoCephalic, Moist mucous membranes
Respiratory: Clear
Cardiac: S1/S2 and Regular Rhythm; No Murmur or Rub
GI: Soft, Non Tender, Non Distended and Normal Bowel Sounds; No Organomegaly
Musculoskeletal: No Clubbing, No Cyanosis and No Edema
Skin: No Rash
Neuro: AO x 3 and Nonfocal/grossly intact
Psych: Calm
Labs
Lab Results
WBC 2.2 10^3/uL (4.8-10.8) L* 12/06/24 06:57
RBC 3.41 10^6/uL (4.20-5.40) L 12/06/24 06:57
Hgb 11.3 g/dL (12.0-16.0) L D 12/06/24 06:57
Hct 32.6 % (37.0-47.0) L 12/06/24 06:57
MCV 95.6 fL (81.0-99.0) 12/06/24 06:57
MCH 33.1 pg (27.0-31.0) H 12/06/24 06:57
MCHC 34.7 g/dL (33.0-37.0) 12/06/24 06:57
RDW 15.7 % (11.5-14.5) H 12/06/24 06:57
Plt Count 266 10^3/uL (130-400) 12/06/24 06:57
MPV 9.3 fL (7.4-10.4) 12/06/24 06:57
Creatinine 0.7 mg/dL (0.6-1.0) 12/06/24 06:57
Vital Signs
Vital Signs
Temp Pulse Resp BP Pulse Ox
97.9 F 88 12 103/70 95
12/06/24 07:00 12/06/24 07:00 12/06/24 07:00 12/06/24 07:00 12/06/24 08:28
[2024-12-06 15:00] VITALS: BP 120/77
--- NOTE | 2024-12-06 15:32 | CM ---
Initial assessment completed with patient who lives with her and 26 y/o son in a story home with 1 step to enter. DME in home is [employer], [employer]. Patient is independent in ambulation and ADL's. Does not drive lately. No use of DME.
No in-home services. Discharge POC: Anticipate home with no needs.
--- NOTE | 2024-12-06 15:34 | PHA.MM ---
Medical Marijuana Note
- -
Patient has signed agreement?: Yes
Patient's [place] medical [place] card visualized?: Yes
Qualifying condition(s) for medical marijuana use:: Cancer
Medical Marijuana Information:
Dispensary: [facility]
Product (s): Topical Salve
Dose patient reports takin application prn prn
Picture of Product Label (s):
Patient/Caregiver Medical Marijuana Identification Card:
--- NOTE | 2024-12-06 17:06 | PTCARENOTE ---
Pt AAO x3, GUEVARA; OOB to BR/ambulatory in room, no c/o weakness/dizziness, states she 'feels much better' today. Pt c/o generalized pain; states currently minimal effect from IV Dilaudid; Dr. Maloney notified. VSS. On room air- pulse ox 98%, no
c/o SOB. Abd soft, rounded, lucia PO; occ c/o mild nausea. Voids in BR without difficulty. IVF's NSS @ 80 ml/hr infusing via Rt forearm site without sx of infiltration. Resting in bed at present. Will continue to monitor.
[2024-12-06] MEDS: LOVENOX 40 MG SC (18:02)
[2024-12-06] MEDS: SENOKOT-S 2 TABLET PO (21:12)
[2024-12-06] MEDS: LR 1000 IV (21:12)
[2024-12-06 22:03] VITALS: BP 109/70
[2024-12-06] MEDS: [UNRECOGNIZED DRUG - OTHER] 1 UNIT TOPICAL (22:06)
[2024-12-06 23:37] VITALS: BP 107/70
[2024-12-07] MEDS: DILAUDID 2 MG IV ×2 (00:46→11:47)
[2024-12-07] MEDS: DILAUDID 1 MG IV ×2 (04:33→08:33)
[2024-12-07 07:25] VITALS: BP 120/83
[2024-12-07] MEDS: PROTONIX IV 40 MG IV (08:18)
[2024-12-07] MEDS: NSS (PRESERVATIVE FREE) 10 ML IV (08:19)
[2024-12-07] MEDS: DOLOPHINE 5 MG PO (08:19)
[2024-12-07 08:30] LABS: Blood Urea Nitrogen 4 mg/dl (7-17); Calcium 8.6 mg/dl (8.4-10.2); Carbon Dioxide 26 mmol/L (22-30); Chloride 109 mmol/L (98-107); Estimated Creatinine Clearance 74 ml/min; Glucose 101 mg/dl (70-99); Magnesium 2.1 mg/dl (1.6-2.3); Potassium 4.3 mmol/L (3.5-5.1); Sodium 138 mmol/L (135-145); eGFR > 60.00
[2024-12-07 08:32] LABS: Hematocrit 33.3 % (37.0-47.0); Hemoglobin 11.6 g/dL (12.0-16.0); Mean Corp Hgb Conc. 34.8 g/dL (33.0-37.0); Mean Corpuscular Volume 97.4 fL (81.0-99.0); Platelet Count 264 10^3/uL (130-400); Red Cell Dist. Width 15.3 % (11.5-14.5)
[2024-12-07] MEDS: SENOKOT-S 2 TABLET PO (08:33)
[2024-12-07 09:38] LABS: Absolute Neutrophils -Man Diff 1.2 10^3/uL (1.4-6.5); Normal RBC Morphology Yes; Platelets Checked Yes; Total Cells Counted 100
--- NOTE | 2024-12-07 09:57 | W.PN.HOSP.TC ---
Today's Communication/Plan
-
Discharge
Assessment / Plan
Assessment / Plan
Physical Exam
General: Well Developed, Well Nourished and No Apparent Distress
HEENT: Normocephalic, Moist mucous membranes and Atraumatic
Respiratory: Clear
Cardiac: S1/S2 and Regular Rhythm
GI: Soft, Non Tender, Non Distended and Normal Bowel Sounds
Musculoskeletal: No Cyanosis and No Edema
Skin: Warm. Dry.
Neuro: AAO x 3 and Nonfocal/grossly intact
Psych: Calm
Assessment/Plan
54-year-old female with a past medical history of metastatic breast cancer to the bones, including the lower extremities and skull, who presented with complaints of 8 days of constant nausea, intermittent vomiting, decreased appetite and extreme
fatigue.
#Acute on chronic intractable nausea/vomiting secondary to recent Kisqali/Ribociclib versus viral illness from [place] 1[place]5 weeks prior to presentation versus topical marijuana?
She feels much better. She feels IV fluid helped her. She has Zofran and Compazine at home. Abdominal x-ray, no acute finding, no ileus or obstruction. She is able to tolerate diet. Will give her prescription of Protonix
#Mild increase in QT on admission EKG, repeat EKG, normal QT. Normal sinus rhythm
No chest pain
# Chronic pain syndrome with opioid dependency secondary to cancer. Continue with methadone Dilaudid as home dose. Patient reported IV Dilaudid 1 mg did not touch her.
# History of breast cancer mets to bone
She follows with [facility] oncology
#Leukopenia with anemia secondary to chemotherapy
DVT prophylaxis: SCDs. Lovenox
CODE status: full code
Total discharge time spent to see the patient, examine the patient, review data and lab results, discuss discharge plan with patient, nursing staff around 65 minutes
Anticipated Discharge: Today
Subjective/Interval History
-
Date of Service: December 07, 2024
She feels better
No nausea or abdominal pain
She wants to go home
Objective Data
-
Labs:
Laboratory Results
12/07/24
07:32
WBC 2.0 L*
Hgb 11.6 L
Hct 33.3 L
Plt Count 264
Sodium 138
Potassium 4.3
Chloride 109 H
Carbon Dioxide 26
BUN 4 L
Creatinine 0.8
Glucose 101 H
Calcium 8.6
Vital Signs:
Vital Signs
Temp Pulse Resp BP Pulse Ox
97.8 F 104 18 120/83 95
12/07/24 07:25 12/07/24 07:25 12/07/24 07:25 12/07/24 07:25 12/07/24 07:25
I&O
12/06/24 12/07/24 12/08/24
06:59 06:59 06:59
Intake Total 0 / 0 3460 / 3460
Balance 0 / 0 3460 / 3460
[2024-12-07] MEDS: LR 1000 IV (10:33)
[2024-12-07] MEDS: ZOFRAN 4 MG PO (12:15)
[2024-12-07 12:20] VITALS: BP 110/61
--- NOTE | 2024-12-07 13:51 | W.DCSUMMARY ---
Discharge Summary
Discharge Data
Date of Admission: 12/05/24
Date of Discharge: 12/07/24
-
Pending Results: No
Hospital Course
54 years old female with history of metastatic ER positive breast cancer presented to the hospital with nausea, vomiting and generalized weakness patient reported signs of dehydration. She did not have fever or chills. She was admitted and
received intravenous fluid. She did not require antiemetic medication. Imaging study of the abdomen did not show obstruction. Oncology has evaluated the patient and recommended supportive care. She was found to have leukopenia secondary to
chemotherapy/ribociclib treatment. Patient tolerated diet. She remained hemodynamically stable. Patient was discharged home in a stable condition.
Discharge Plan
-
Patient Disposition: Home (Routine Discharge)
Discharge Diagnosis/Procedures: Nausea and vomiting/dehydration
Diet: As tolerated
Referrals:
George Wills MD [Family Provider, [facility]] - in one to two weeks
Prescriptions:
New
magnesium oxide 500 mg magnesium tablet
500 mg PO BID Qty: 60 0RF
pantoprazole [Protonix] 40 mg tablet,delayed release (DR/EC)
40 mg PO DAILY Qty: 30 0RF
Rx Instructions:
Take 20-30 minutes before breakfast
Continued
ondansetron HCl 8 mg Tablet
8 mg PO Q8H PRN (Reason: nausea)
prochlorperazine maleate [Compazine] 10 mg Tablet
10 mg PO Q8H PRN (Reason: nausea)
diazepam 2 mg Tablet
2 mg PO HS
hydromorphone 4 mg Tablet
4 mg PO Q3H
ribociclib 400 mg/day (200 mg x 2) Tablet
400 mg PO DAILY
Rx Instructions:
on three weeks off one week.
methadone 5 mg tablet
5 mg PO BID 5 Days Qty: 10 0RF
Discharge Orders:
Discharge Patient (As Directed); Ordered 12/07/24
Ordered By: Rey Clements
Discharge Date and Time
Discharge Date/Time: 12/07/24 12:22
Print Language: CITIZEN [place]
== END 2024-12-07 12:22 | disposition home or self-care (01) | DRG 809 ==
LOC: 4 EAST ACU 07:46
PROVIDERS: Hospitalist; Registered Nurse; ADMITTING PHYSICIAN Internal Medicine; ATTENDING PHYSICIAN Internal Medicine; CONSULT PHYSICIAN Internal Medicine Hematology & Oncology; EMERGENCY PHYSICIAN Emergency Medicine; FAMILY PHYSICIAN Family Medicine
DX: D70.1 Agranulocytosis secondary to cancer chemotherapy (principal); C79.51 Secondary malignant neoplasm of bone; T45.1X5A Adverse effect of antineoplastic and immunosuppressive drugs, initial encounter; E86.0 Dehydration; Z17.0 Estrogen receptor positive status [ER+]; C50.919 Malignant neoplasm of unspecified site of unspecified female breast; G89.3 Neoplasm related pain (acute) (chronic); R62.7 Adult failure to thrive; Z11.52 Encounter for screening for COVID-19
CPT/HCPCS: 74022; 80048; 80053; 81003; 81015; 83690; 83735; 84443; 85025; 85027; 87502; 87811; 93005; 96361; 96374; 96375; 96376; 99284